=== PATIENT | male | born 1990 | race Hispanic/Latino ===

== ENCOUNTER 2019-08-24 11:23 | Emergency (ER) | payer SELFPAY ==
[2019-08-24] MEDS ORDERED: ONDANSETRON 4 MG/2 ML VIAL ONE (12:06)
[2019-08-24] MEDS ORDERED: MORPHINE 4 MG/ML SYR ONE (12:06)
[2019-08-24] MEDS ORDERED: NA CHLORIDE 0.9% 1,000 ML ONE (12:07)
[2019-08-24 12:18] LABS: Absolute Lymphocytes (CBC) 1.9 K/uL (0.7-4.9); Basophils % 0.5 % (0-1.3); Hematocrit 44.8 % (39.6-49.0); Lymphocytes % 11.5 % (15.3-44.8); MPV 9.9 fL (7.6-11.3); RBC Red Blood Cell Count 5.14 M/uL (4.33-5.43)
[2019-08-24 12:39] LABS: Albumin 3.5 g/dL (3.4-5.0); Bilirubin Direct 0.6 mg/dL (0-0.2); Potassium 3.8 mmol/L (3.5-5.1); Protein, Total 8.2 g/dL (6.4-8.2)
[2019-08-24 12:49] LABS: Blood Morphology Comment NOT SEEN (NOT SEEN); Platelet Estimate ADEQ; Urine White Blood Cell Casts OK
--- NOTE | 2019-08-24 13:08 | RAD REPORT ---
EXAM DESCRIPTION: CTAbdomen Pelvis W Contrast - 08/24/2019 12:56 pm CLINICAL HISTORY: Abdominal pain. ABD PAIN COMPARISON: No comparisons TECHNIQUE: Biphasic CT imaging of the abdomen and pelvis was performed with 100 ml non-ionic IV cont rast. All CT scans are performed using dose optimization technique as appropriate and may include automated exposure control or mA/KV adjustment according to patient size. FINDINGS: The lung bases are clear. The liver, spleen, pancreas, adrenal glands and kidneys are within normal limits. No bowel obstruction, free air, free fluid or abscess. The appendix is dilated to 18 mm with surroun ding inflammatory changes present. No evidence of significant lymphadenopathy. No suspicious bony findings. IMPRESSION: Acute appendicitis.
[2019-08-24] MEDS ORDERED: PIPER/TAZO/NS 3.375gm 3.375 GM/100 ML BAG ONE (13:27)
--- NOTE | 2019-08-24 13:53 | RAD REPORT ---
EXAM DESCRIPTION: RAD - Chest Single View - 08/24/2019 1:46 pm CLINICAL HISTORY: preop Chest pain. COMPARISON: No comparisons FINDINGS: Portable technique limits examination quality. The lungs are grossly clear. The heart is mildly enlarged. No displaced fractures. IMPRESSION: Mild cardiomegaly.
--- NOTE | 2019-08-24 13:56 | EDPHYS ---
Physician Documentation [facility] Name: Adonis Cano Age: 29 yrs Sex: Male : 1990 Arrival Date: 08/24/2019 Time: 11:24 Bed 5 Private MD: Unknown, Unknown ED Physician Pavan Valero HPI: 08/24 12:13 This 29 yrs old Male presents to ER via Ambulatory with complaints of kb Abdominal Pain. 12:13 The patient presents with abdominal pain right lower quadrant. kb 12:16 Onset: The symptoms/episode began/occurred 3 day(s) ago. The symptoms do not radiate. kb Associated signs and symptoms: Pertinent positives: nausea, vomiting, and diarrhea. The symptoms are described as constant. Modifying factors: The symptoms are alleviated by nothing, the symptoms are aggravated by nothing. Severity of pain: At its worst the pain was mild moderate in the emergency department the pain is unchanged. The patient has not experienced similar symptoms in the past. The patient has not recently seen a physician. Pt reports n/v/d for 3 days with abd pain. Pain now settled to RLQ. Pain to abd with walking and lifting legs. Historical: - Allergies: 11:41 No Known Allergies; sv - Home Meds: 11:41 losartan 50 mg oral tab 2 tabs once daily [Active]; Coreg 12.5 mg Oral tab 1 tab 2 sv times per day [Active]; hydroxyzine HCl 50 mg Oral tab QID prn [Active]; atorvastatin 40 mg oral tab 2 tabs once daily [Active]; acetazolamide 250 mg Oral tab 1 tab 3 times per day [Active]; Lasix 20 mg Oral tab 1 tab once daily [Active]; - PMHx: 11:41 CHF; Hypertension; High Cholesterol; Anxiety; sv - PSHx: 11:41 None; sv - Immunization history:: Adult Immunizations up to date, Flu vaccine is not up to date. - Social history:: Smoking status: Patient uses tobacco products, smokes one-half pack cigarettes per day. - Ebola Screening: : No symptoms or risks identified at this time. ROS: 12:12 Constitutional: Negative for fever, chills, and weight loss, ENT: Negative for injury, kb pain, and discharge, Neck: Negative for injury, pain, and swelling, Cardiovascular: Negative for chest pain, palpitations, and edema, Respiratory: Negative for shortness of breath, cough, wheezing, and pleuritic chest pain, Back: Negative for injury and pain, : Negative for injury, bleeding, discharge, and swelling, MS/Extremity: Negative for injury and deformity, Skin: Negative for injury, rash, and discoloration, Neuro: Negative for headache, weakness, numbness, tingling, and seizure. 12:12 Abdomen/GI: Positive for abdominal pain, nausea, vomiting, and diarrhea, Negative for constipation, abdominal cramps, abdominal distension, anorexia. Exam: 12:12 Constitutional: This is a well developed, well nourished patient who is awake, alert, kb and in no acute distress. Head/Face: Normocephalic, atraumatic. ENT: Nares patent. No nasal discharge, no septal abnormalities noted. Tympanic membranes are normal and external auditory canals are clear. Oropharynx with no redness, swelling, or masses, exudates, or evidence of obstruction, uvula midline. Mucous membranes moist. Neck: Trachea midline, no thyromegaly or masses palpated, and no cervical lymphadenopathy. Supple, full range of motion without nuchal rigidity, or vertebral point tenderness. No Meningismus. Chest/axilla: Normal chest wall appearance and motion. Nontender with no deformity. No lesions are appreciated. Cardiovascular: Regular rate and rhythm with a normal S1 and S2. No gallops, murmurs, or rubs. Normal PMI, no JVD. No pulse deficits. Respiratory: Lungs have equal breath sounds bilaterally, clear to auscultation and percussion. No rales, rhonchi or wheezes noted. No increased work of breathing, no retractions or nasal flaring. Back: No spinal tenderness. No costovertebral tenderness. Full range of motion. Skin: Warm, dry with normal turgor. Normal color with no rashes, no lesions, and no evidence of cellulitis. MS/ Extremity: Pulses equal, no cyanosis. Neurovascular intact. Full, normal range of motion. Neuro: Awake and alert, GCS 15, oriented to person, place, time, and situation. Cranial nerves II-XII grossly intact. Motor strength 5/5 in all extremities. Sensory grossly intact. Cerebellar exam normal. Normal gait. 12:12 Abdomen/GI: Inspection: abdomen appears normal, Bowel sounds: normal, in all quadrants, Palpation: soft, in all quadrants, moderate abdominal tenderness, in the right upper quadrant and right lower quadrant. Vital Signs: 11:35 BP 121 / 93; Pulse 108; Resp 24; Pulse Ox 95% ; Weight 208.65 kg; Height 5 ft. 11 in. sv (180.34 cm); Pain 6/10; 12:30 BP 113 / 85; Pulse 95; Resp 20; Pulse Ox 95% on R/A; sv 13:38 BP 120 / 72; Pulse 97; Resp 18; Pulse Ox 94% ; aj1 13:38 Temp 100.7(TE); aa5 14:46 BP 122 / 71; Pulse 100; Resp 20 S; Temp 103.1(O); Pulse Ox 93% on R/A; aa5 15:25 Temp 101.6; iw 11:35 Body Mass Index 64.16 (208.65 kg, 180.34 cm) sv 13:38 ANCILLARY SPECIALIST notified of increased temperature. aa5 14:46 ANCILLARY SPECIALIST notified of increased temperature. aa5 MDM: 11:44 Patient medically screened. kb 12:13 Data reviewed: vital signs, nurses notes. Data interpreted: Pulse oximetry: on room air kb is 95 %. Interpretation: normal. 13:43 Counseling: I had a detailed discussion with the patient and/or guardian regarding: the kb historical points, exam findings, and any diagnostic results supporting the discharge/admit diagnosis, lab results, radiology results, the need for further work-up and treatment in the hospital. Physician consultation: Zeus Reynolds MD was contacted at 13:44, regarding consult, patient's condition, after a discussion of the case, a recommendation for transfer for higher level of care is made, requests transfer due to lack of bariatric services. 13:45 ED course: Transfer initiated to [facility]. kb 13:54 ED course: Dr Damon accepts pt for transfer. kb 08/24 11:45 Order name: Basic Metabolic Panel; Complete Time: 12:40 kb 08/24 11:45 Order name: CBC with Diff; Complete Time: 12:51 kb 08/24 11:45 Order name: Hepatic Function; Complete Time: 12:40 kb 08/24 11:45 Order name: Lipase; Complete Time: 12:40 kb 08/24 11:56 Order name: CT Abd/Pelvis - IV Contrast Only; Complete Time: 13:14 kb 08/24 12:50 Order name: CBC Smear Scan; Complete Time: 12:51 EDMS 08/24 13:18 Order name: Chest Single View XRAY; Complete Time: 13:56 kb 08/24 13:18 Order name: EKG; Complete Time: 13:18 kb 08/24 11:45 Order name: IV Saline Lock; Complete Time: 12:11 kb 08/24 11:45 Order name: Labs collected and sent; Complete Time: 12:11 kb 08/24 13:18 Order name: EKG - Nurse/Tech; Complete Time: 13:33 kb Administered Medications: 12:10 Drug: Zofran 4 mg Route: IVP; Site: right antecubital; aa5 12:12 Drug: morphine 4 mg Route: IVP; Site: right antecubital; aa5 12:16 CANCELLED (Physician Discretion): NS 0.9% 1000 ml IV at 1000 ml once aa5 12:16 Drug: NS 0.9% 500 ml Route: IV; Rate: bolus; Site: right antecubital; aa5 13:33 Drug: Zosyn 3.375 grams Route: IVPB; Infused Over: 60 mins; Site: right antecubital; aa5 14:33 Follow up: Response: No adverse reaction; IV Status: Completed infusion aa5 14:55 Drug: Tylenol 1000 mg Route: PO; aa5 15:32 Follow up: Response: Temperature is decreased iw Disposition: 08/24/19 13:55 Transfer ordered to [facility]. Diagnosis is Acute appendicitis. - Reason for transfer: Higher level of care. - Accepting physician is Dr Damon. - Condition is Stable. - Problem is new. - Symptoms are unchanged. Addendum: 08/27/2019 08:21 Co-signature as Attending Physician, Pavan Valero MD I agree with the assessment and k dr plan of care. Signatures: Dispatcher [employer] EDMT Deepika Estevez, JADE-C IN HOME SALES CONSULTANT-Rosa Hall, RN RN Pavan Sewell MD MD kdr Williams, Irene, RN RN iw Lou Fitzgerald RN RN aa5 Corrections: (The following items were deleted from the chart) 10/25 12:16 11:56 NS 0.9% 1000 ml IV at 1000 ml once ordered. kb aa5 12:16 12:16 NS 0.9% 1000 ml IV at 1000 ml once ordered. aa5 aa5 13:44 13:32 Counseling: I had a detailed discussion with the patient and/or guardian carlin regarding: the historical points, exam findings, and any diagnostic results supporting the discharge/admit diagnosis, lab results, radiology results, the need for further work-up and treatment in the hospital, kb 13:55 13:55 08/24/2019 13:55 Transfer ordered to [facility]. Diagnosis is kb Acute appendicitis. Reason for transfer: Higher level of care. Accepting physician is Ashli. Condition is Stable. Problem is new. Symptoms are unchanged. kb 13:59 13:54 ED course: Dr Cornelius accepts pt for transfer. kb kb 14:00 13:55 08/24/2019 13:55 Transfer ordered to [facility]. Diagnosis is kb Acute appendicitis. Reason for transfer: Higher level of care. Accepting physician is Dr Cornelius. Condition is Stable. Problem is new. Symptoms are unchanged. kb 15:32 14:00 08/24/2019 13:55 Transfer ordered to [facility]. Diagnosis is iw Acute appendicitis. Reason for transfer: Higher level of care. Accepting physician is Dr Damon. Condition is Stable. Problem is new. Symptoms are unchanged. kb
--- NOTE | 2019-08-24 13:56 | ER ---
Nurse's Notes [facility] Name: Adonis Cano Age: 29 yrs Sex: Male : 1990 Arrival Date: 08/24/2019 Time: 11:24 Bed 5 Private MD: Unknown, Unknown Diagnosis: Acute appendicitis Presentation: 08/24 11:33 Presenting complaint: Patient states: epigastric pain started 1st 3 days ago with sv n/v/d, and today the pain is in the RLQ. Transition of care: patient was not received from another setting of care. Onset of symptoms was August 21, 2019. Risk Assessment: Do you want to hurt yourself or someone else? Patient reports no desire to harm self or others. Initial Sepsis Screen: Does the patient meet any 2 criteria? No. Patient's initial sepsis screen is negative. Does the patient have a suspected source of infection? No. Patient's initial sepsis screen is negative. Care prior to arrival: Medication(s) given: Tylenol, taken this morning. 11:33 Method Of Arrival: Ambulatory sv 11:33 Acuity: ZULMA 3 sv Triage Assessment: 11:35 General: Appears in no apparent distress. uncomfortable, obese, well developed, sv Behavior is cooperative, appropriate for age. Pain: Complains of pain in right lower quadrant Pain currently is 6 out of 10 on a pain scale. Pain began 1 day ago. Is intermittent. Neuro: Level of Consciousness is awake, alert, obeys commands, Oriented to person, place, time, situation, Moves all extremities. Full function Gait is steady. Respiratory: Respiratory effort is even, unlabored, Respiratory pattern is regular, symmetrical. GI: Abdomen is obese, Reports lower abdominal pain, diarrhea, nausea, vomiting. Derm: Skin is pink, warm \T\ dry. Historical: - Allergies: 11:41 No Known Allergies; sv - Home Meds: 11:41 losartan 50 mg oral tab 2 tabs once daily [Active]; Coreg 12.5 mg Oral tab 1 tab 2 sv times per day [Active]; hydroxyzine HCl 50 mg Oral tab QID prn [Active]; atorvastatin 40 mg oral tab 2 tabs once daily [Active]; acetazolamide 250 mg Oral tab 1 tab 3 times per day [Active]; Lasix 20 mg Oral tab 1 tab once daily [Active]; - PMHx: 11:41 CHF; Hypertension; High Cholesterol; Anxiety; sv - PSHx: 11:41 None; sv - Immunization history:: Adult Immunizations up to date, Flu vaccine is not up to date. - Social history:: Smoking status: Patient uses tobacco products, smokes one-half pack cigarettes per day. - Ebola Screening: : No symptoms or risks identified at this time. Screenin:51 Abuse screen: Denies threats or abuse. Denies injuries from another. Nutritional sv screening: No deficits noted. Tuberculosis screening: No symptoms or risk factors identified. Fall Risk None identified. Assessment: 13:00 General: Appears in no apparent distress. comfortable, Behavior is calm, cooperative, aj1 appropriate for age. Pain: Complains of pain in right lower quadrant. Neuro: Level of Consciousness is awake, alert, obeys commands, Oriented to person, place, time, situation. Cardiovascular: Patient's skin is warm and dry. Respiratory: Airway is patent Respiratory effort is even, unlabored, Respiratory pattern is regular, symmetrical. GI: Abdomen is non-distended, Bowel sounds present X 4 quads. Abd is soft X 4 quads Abdomen is tender to palpation in right lower quadrant Reports diarrhea, nausea, vomiting. : No signs and/or symptoms were reported regarding the genitourinary system. EENT: No signs and/or symptoms were reported regarding the EENT system. Derm: No signs and/or symptoms reported regarding the dermatologic system. Skin is pink, warm \T\ dry. normal. Musculoskeletal: No signs and/or symptoms reported regarding the musculoskeletal system. Circulation, motion, and sensation intact. 13:33 Reassessment: Dr. Valero at bedside. aj1 15:00 Reassessment: Report given to Nan (at [facility]). Pt notified of wait time for aa5 EMS for transfer. Pt sitting up in bed watching TV. Pt's family at bedside. . Vital Signs: 11:35 BP 121 / 93; Pulse 108; Resp 24; Pulse Ox 95% ; Weight 208.65 kg; Height 5 ft. 11 in. sv (180.34 cm); Pain 6/10; 12:30 BP 113 / 85; Pulse 95; Resp 20; Pulse Ox 95% on R/A; sv 13:38 BP 120 / 72; Pulse 97; Resp 18; Pulse Ox 94% ; aj1 13:38 Temp 100.7(TE); aa5 14:46 BP 122 / 71; Pulse 100; Resp 20 S; Temp 103.1(O); Pulse Ox 93% on R/A; aa5 15:25 Temp 101.6; iw 11:35 Body Mass Index 64.16 (208.65 kg, 180.34 cm) sv 13:38 MARBLE CEILING INSTALLER notified of increased temperature. aa5 14:46 MARBLE CEILING INSTALLER notified of increased temperature. aa5 ED Course: 11:24 Patient arrived in ED. ag5 11:25 Unknown, Unknown is Private Physician. ag5 11:27 Deepika Estevez [facility]NP-C [facility]. kb 11:27 Pavan Valero MD is Attending Physician. kb 11:35 Patient has correct armband on for positive identification. Bed in low position. Call sv light in reach. Adult w/ patient. Pulse ox on. NIBP on. Door closed. Head of bed elevated. 11:35 Arm band placed on Patient placed. sv 11:38 Rosa Stauffer RN is Primary Nurse. sv 11:39 Triage completed. sv 11:55 Nurse Practitioner and/or Physician Steel Layer to see patient. sv 12:05 Inserted saline lock: 20 gauge in right antecubital area, using aseptic technique. sv Blood collected. Flushed right antecubital with 5 ml normal saline. 12:14 Awaiting lab results, Awaiting CT Scan. sv 12:22 Radiology exam delayed due to lab results not completed at this time. (BUN/Creatinine). kw1 12:[address] via stretcher. sv 12:57 CT Abd/Pelvis - IV Contrast Only In Process Unspecified. EDMS 13:00 Report received from MACO Lee. aj1 13:34 EKG done, by technology coach. reviewed by Deepika VARELA. sm3 13:42 initiated a transfer with Hanh from the [facility]. eb 13:46 Chest Single View XRAY In Process Unspecified. EDMS 13:[address] Damon the surgeon adjunct physical education instructor for [facility] with Deepika BERNAL for eb patient transfer consultation. 13:57 administrative approval given by Hanh Pereira. patient has been accepted to [facility] bed 1513/ Dr. Damon has accepted the patient in transfer/ report to be called to [phone]. 15:31 No provider procedures requiring assistance completed. Patient transferred, IV remains iw in place. Administered Medications: 12:10 Drug: Zofran 4 mg Route: IVP; Site: right antecubital; aa5 12:12 Drug: morphine 4 mg Route: IVP; Site: right antecubital; aa5 12:16 CANCELLED (Physician Discretion): NS 0.9% 1000 ml IV at 1000 ml once aa5 12:16 Drug: NS 0.9% 500 ml Route: IV; Rate: bolus; Site: right antecubital; aa5 13:33 Drug: Zosyn 3.375 grams Route: IVPB; Infused Over: 60 mins; Site: right antecubital; aa5 14:33 Follow up: Response: No adverse reaction; IV Status: Completed infusion aa5 14:55 Drug: Tylenol 1000 mg Route: PO; aa5 15:32 Follow up: Response: Temperature is decreased iw Outcome: 13:55 ER care complete, transfer ordered by MD. gillis 15:30 Transferred by ground EMS [facility] to [facility], Transfer form iw completed. X-rays sent w/ patient. 15:30 Condition: good 15:30 Discharge instructions given to patient, Instructed on the need for transfer, Demonstrated understanding of instructions. 15:32 Patient left the ED. iw Signatures: Dispatcher [employer] EDMS Deepika Estevez, NICHOLE STUDIO RECEPTIONIST-Lubna Smith RN RN aj1 Rosa Stauffer RN RN sv Williams, Irene, RN RN iw Lou Fitzgerald RN RN aa5 Opal Keys1 Keyona Harrell Shakira 3 Juan Oropeza 5 Corrections: (The following items were deleted from the chart) 14:17 13:[address] Cornelius the surgeon adjunct physical education instructor for [facility] with Deepika BERNAL for eb patient transfer consultation. eb 15:03 14:46 BP 122 / 71; Pulse 100bpm; Resp 20bpm; Spontaneous; Pulse Ox 93% RA; Temp 101.5F aa5 Temporal; MARBLE CEILING INSTALLER notified of increased temperature. ; aa5
[2019-08-24] MEDS ORDERED: ACETAMINOPHEN 500 MG TAB ONE (14:58)
[2019-08-24 15:44] VITALS: BP 122/71; O2SAT 93
[2019-08-24 15:45] VITALS: TEMP 101.6
--- NOTE | 2019-08-25 12:32 | EKG ---
Test Date: 2019-08-24 Test Time: 13:27:28 Hardware Design Engineer: DONRTELL-V MEASUREMENT RESULTS: Intervals: Rate: 96 OH: 182 QRSD: 116 QT: 372 QTc: 469 [place]: P: 32 OH: 182 QRS: -11 T: 121 INTERPRETIVE STATEMENTS: Normal sinus rhythm Left ventricular hypertrophy with QRS widening and repolarization abnormality Abnormal ECG No previous ECG available for comparison Electronically Signed On 08-25-19 12:29:27 CDT by Low Camacho
== END 2019-08-24 15:32 | disposition short-term general hospital (02) ==
LOC: ER 11:23
DX: K35.80 Unspecified acute appendicitis (principal); I10 Essential (primary) hypertension; F41.9 Anxiety disorder, unspecified; E78.00 Pure hypercholesterolemia, unspecified; I50.9 Heart failure, unspecified; F17.210 Nicotine dependence, cigarettes, uncomplicated
CPT/HCPCS: 36415; 71045; 74177; 80048; 80076; 83690; 85025; 93005; 96365; 96375; 99285; J2405; J2543; J7030; Q9967